=== PATIENT | male | born 1935 | race Caucasian/White ===

== ENCOUNTER 2018-08-29 17:17 | Emergency (ER) | payer MEDICARE, OTHER ==
[2018-08-29] MEDS ORDERED: Morphine 10 MG/ML VIAL ONE (17:47)
[2018-08-29] MEDS ORDERED: Ondansetron ODT 4 MG TAB ONE (18:48)
[2018-08-29] MEDS ORDERED: HYDROcodone/Acetaminophen 5/325 mg Tablet ONE (18:48)
--- NOTE | 2018-08-29 20:24 | RAD ---
AP AND OBLIQUE VIEWS LEFT RIBS: 08/29/18 HISTORY: Fall with left sided pain. AP and oblique views left ribs obtained. Images demonstrate fractures involving the left 6th, 7th, 8th and 9th ribs. No evidence of accompanyi ng pneumothorax seen. No evidence of hemothorax seen. IMPRESSION: Left 6th, 7th, 8th, and 9th ribs fractures. POS: [facility]
--- NOTE | 2018-08-29 20:26 | RAD ---
TWO VIEWS CHEST: 08/29/18 HISTORY: Fall with left sided pain. PA and lateral views of the chest is obtained. Again, left sided rib fractures seen. Please see accom panying left rib series dictation. The lungs are well aerated. No evidence of hemo or pneumothorax seen. IMPRESSION: Left 6th through 9th rib fractures. No other acute intrathoracic abnormality seen. POS: [facility]
== END 2018-08-29 20:30 | disposition home or self-care (01) ==
LOC: ERS 17:17
DX: S22.42XA Multiple fractures of ribs, left side, initial encounter for closed fracture (principal); I25.10 Atherosclerotic heart disease of native coronary artery without angina pectoris; E11.9 Type 2 diabetes mellitus without complications; E78.5 Hyperlipidemia, unspecified; I10 Essential (primary) hypertension; Z79.899 Other long term (current) drug therapy; Z79.84 Long term (current) use of oral hypoglycemic drugs; W17.89XA Other fall from one level to another, initial encounter
CPT/HCPCS: 71046; 96372; J2270; Q0162

== ENCOUNTER 2018-10-26 10:35 | Day surgery (SDC) | payer MEDICARE, OTHER ==
[2018-10-25 12:20] VITALS: BMI 23.8
[2018-10-26] MEDS ORDERED: PROPOFOL 200 MG/20 ML VIAL ONE (14:08)
--- NOTE | 2018-10-26 17:15 | EKG ---
Test Reason : PREOP Blood Pressure : / mmHG Vent. Rate : 053 BPM Atrial Rate : 053 BPM P-R Int : 254 ms QRS Dur : 080 ms QT Int : 454 ms P-R-T Axes : 049 -27 077 degrees QTc Int : 426 ms Sinus bradycardia with 1st degree A-V block Anteroseptal infarct (cited on or before 02-APR-2004) Abnormal ECG When compared with ECG of 03-FEB-2016 07:16, No significant change was found Confirmed by DR. Lars MIRANDA ([id number]) on 10/26/2018 5:14:49 PM Referred By: MARIANNE Confirmed By:DR. Lars MIRANDA
--- NOTE | 2018-10-27 07:28 | OP ---
DATE OF PROCEDURE: 10/26/2018 PREPROCEDURE DIAGNOSES: 1. Mild anemia, hemoglobin of 11 to 12 with history of iron deficiency. Most recently, iron was 11, ferritin was 100. No overt bleeding. 2. Recent rib fracture after trauma with loss of appetite and some weight loss. POSTPROCEDURE DIAGNOSES: 1. EGD with hiatal hernia. Small bowel biopsies were taken to rule out celiac disease as a cause of iron deficiency, which he states has existed since he was a child. 2. Colonoscopy notable for a 5 mm polyp in the descending colon. This was removed by snare polypectomy and submitted to Pathology. No bleeding sites identified. RECOMMENDATIONS: 1. Continue iron supplementation. 2. Continue home medicines. 3. Follow up in the office on 11/28/2018 at 3:35 for weight check. ANESTHESIA: TIVA. PROCEDURE IN DETAIL: The patient was informed of the risks, benefits, possible complications of endoscopy including perforation, reaction to medication and aspiration, and informed consent was obtained. The patient was brought to the endoscopy suite, where he was sedated in the gradual fashion. Once he was comfortable, a bite block was placed into his oroparhynx. The endoscope was advanced to the esophagus, stomach, and second and third portion of the duodenum and the scope was slowly removed. There was good visualization of the mucosa. The esophagus and stomach were normal except for a sliding-type hiatal hernia of 3 cm in size. The hiatus was at 40 cm. The GE junction was normal at 37 cm. The stomach had normal sensibility, and normal in forward and retroflexed views. The duodenal bulb and duodenal third portion were normal. Biopsies were taken from the duodenum to rule out celiac. The scope was removed. The patient was turned to the room and the rectal exam was performed. The prep was good. The endoscope was advanced through the anal canal through the colon to the cecum. The terminal ileum was entered and normal. The scope was then slowly removed from the colon with no evidence of masses or lesions. There was a 5 mm polyp in the descending colon, which was removed bycold snare polypectomy and submitted to Pathology. Retroflexed views were negative. The scope was removed. The patient tolerated the procedure well without any complications. CC: Job ID: [id number]
== END 2018-10-26 15:10 | disposition home or self-care (01) ==
LOC: SDC 10:35
PROVIDERS: ATTEND Internal Medicine Gastroenterology
PROC: 0DB88ZX Excision of Small Intestine, Via Natural or Artificial Opening Endoscopic, Diagnostic (ICD-10-PCS; principal; 2018-10-26)
PROC: 0DBM8ZX Excision of Descending Colon, Via Natural or Artificial Opening Endoscopic, Diagnostic (ICD-10-PCS; 2018-10-26)
DX: D50.9 Iron deficiency anemia, unspecified (principal); R63.4 Abnormal weight loss; D12.4 Benign neoplasm of descending colon; K21.9 Gastro-esophageal reflux disease without esophagitis; K44.9 Diaphragmatic hernia without obstruction or gangrene; G47.30 Sleep apnea, unspecified; I25.10 Atherosclerotic heart disease of native coronary artery without angina pectoris; E78.00 Pure hypercholesterolemia, unspecified; I11.0 Hypertensive heart disease with heart failure; I50.9 Heart failure, unspecified; E11.9 Type 2 diabetes mellitus without complications; Z88.5 Allergy status to narcotic agent; Z88.2 Allergy status to sulfonamides; Z79.82 Long term (current) use of aspirin; Z79.899 Other long term (current) drug therapy; Z79.84 Long term (current) use of oral hypoglycemic drugs
CPT/HCPCS: 36416; 88305; 93005; 93010; J2704

== ENCOUNTER 2019-02-22 08:07 | Outpatient (CLI) | payer MEDICARE, OTHER ==
--- NOTE | 2019-02-22 08:23 | RAD ---
Supine abdomen: INDICATIONS: Follow-up foreign body of alimentary tract Exam performed to assess camera capsule. Bowel gas pattern unremarkable. Foreign body consistent with the ingested camera overlies the right l ower quadrant, possibly within the cecum.
== END 2019-02-22 08:08 | disposition home or self-care (01) ==
LOC: BICRAD 08:07
PROVIDERS: ATTEND Internal Medicine Gastroenterology
DX: T18.9XXA Foreign body of alimentary tract, part unspecified, initial encounter (principal)
CPT/HCPCS: 74018

== ENCOUNTER 2019-03-01 11:01 | Outpatient (CLI) | payer MEDICARE, OTHER ==
--- NOTE | 2019-03-01 12:24 | CT ---
CT ABDOMEN AND PELVIS WITH ORAL AND IV CONTRAST: HISTORY: Foreign body of alimentary tract. Gastroparesis and anemia. The patient states he swallowed a camer a pill a few weeks ago and does not think he passed it yet. FINDINGS: The lung bases are clear. The liver, spleen, pancreas, adrenal glands, and kidneys appear normal. N o free air, free fluid, or lymphadenopathy is seen in the abdomen or pelvis. The small bowel loops a re not abnormally dilated. There is contrast and fecal material in the colon. Though a radiopaque c amera is not visualized in the bowel loops, the possibility of this being obscured by the presence of contrast cannot be completely excluded. There are vascular calcifications without evidence of aneurysmal dilatation of the abdominal aorta. There are degenerative changes in the spine. IMPRESSION: 1. No acute process. 2. Recommend a KUB a few days later (after excretion of the administered entry contrast) to look for the ingested camera pill). POS: [facility]
== END 2019-03-01 11:02 | disposition home or self-care (01) ==
LOC: BICCT 11:01
PROVIDERS: ATTEND Internal Medicine Gastroenterology
DX: K31.84 Gastroparesis (principal); T18.9XXA Foreign body of alimentary tract, part unspecified, initial encounter; D50.9 Iron deficiency anemia, unspecified
CPT/HCPCS: 74177; 82565

== ENCOUNTER 2020-02-28 13:49 | Outpatient (CLI) | payer MEDICARE, OTHER ==
--- NOTE | 2020-02-28 15:29 | MRI ---
MRI cervical spine noncontrast: DATE: 02/28/2020 HISTORY: 84-year-old male with cervicalgia FINDINGS: Cervical spinal cord is normal in signal. Vertebral body heights are maintained. No major subluxation or major bone marrow signal abnormality. Disc-osteophyte complexes protruding into the anterior aspect of spinal canal at all levels from C3-4 through C6-7, indenting the spinal cord throughout all those levels. They are mostly broad-based, but there are also focal central components of such at C4-5, C5-6, and C6-7. Multilevel bilateral facet DJD, mostly mild on the right, but moderate to sever e on the left at C2-3 and C3-4, moderate on the left at C3 4-5, and mild to moderate bilaterally at C7-T1. Small and moderate-sized uncinate process osteophytes encroach upon bilateral neural foramina at all levels from C3-4 through C7-T1. C1-2: No high-grade central stenosis. C2-3: Ligamentum flavum thickening. Moderate central spinal canal stenosis. Mild bilateral neural for aminal stenosis. C3-4: Severe central spinal canal stenosis. Moderate-severe right neural foraminal stenosis. Severe l eft neural foraminal stenosis. C4-5: Severe central spinal canal stenosis. Severe bilateral neural foraminal stenosis, right worse t palafox left. Ligamentum flavum thickening indents dorsal surface of spinal cord. C5-6: Severe central spinal canal stenosis. Severe right neural foraminal stenosis. Moderate to sever e left neural foraminal stenosis. C6-7: Severe central spinal canal stenosis. Moderate bilateral neural foraminal stenosis. Ligamentum flavum thickening abuts the dorsal surface of spinal cord. C7-T1: No central stenosis. Mild bilateral neural foraminal stenosis. IMPRESSION: 1. Cervical spondylosis consisting of multilevel moderate degenerative disc disease. 2. Severe central spinal canal stenosis with chronic impingement on spinal cord at all levels from C3 -4 through C6-7. 3. Multilevel high-grade bilateral neural foraminal stenosis, including severe.
--- NOTE | 2020-02-28 15:58 | MRI ---
MRI lumbar spine noncontrast HISTORY: Low back pain. FINDINGS: The conus medullaris has normal appearance. Vertebral body heights are maintained. There is desiccation of all of the intervertebral discs and scattered discogenic endplate changes within the bone marrow. Posterior disc bulge and circumferential degenerative changes are apparent on the sagittal images at the T11-12 level with mild central canal stenosis suspected. T12-L1: Disc space narrowing. Osteophytosis. Central canal and neural foramina are patent. L1-2, L2-3: Mild osteophytosis. Central canal and neural foramina are patent. L3-4: Mild disc bulge. Degenerative changes of the facets with joint fluid apparent. Central canal is patent. Moderate bilateral foraminal stenoses. L4-5: Disc space narrowing. Minimal degenerative retrolisthesis. Posterior disc bulge and circumferen tial degenerative changes. Small focal posterior central disc protrusion slightly effacing the thecal sac. Moderate to severe right and moderate left foraminal stenoses. L5-S1: Minimal disc bulge. Thecal sac is patent. Degenerative changes of the facets. Small amount syn ovial cyst associated with the right facet. Neural foramina are patent. IMPRESSION : Degenerative changes of the lower thoracic spine and lumbar spine, with central canal and foraminal s tenoses as detailed above, greatest on the right at the L4-5 level. Clinical correlation regarding the right L4 dermatome is required.
== END 2020-02-28 13:50 | disposition home or self-care (01) ==
LOC: BICMRI 13:49
PROVIDERS: ATTEND Neurological Surgery
DX: M54.2 Cervicalgia (principal); M54.5 Low back pain; M47.814 Spondylosis without myelopathy or radiculopathy, thoracic region; M47.816 Spondylosis without myelopathy or radiculopathy, lumbar region; M48.061 Spinal stenosis, lumbar region without neurogenic claudication; M47.812 Spondylosis without myelopathy or radiculopathy, cervical region; M48.02 Spinal stenosis, cervical region; M25.80 Other specified joint disorders, unspecified joint
CPT/HCPCS: 72141; 72148

== ENCOUNTER 2020-05-04 00:33 | Inpatient (IN) | payer MEDICARE, OTHER ==
[2020-05-04] MEDS ORDERED: Naloxone HCl 0.4 mg/ml Vial ONE (00:37)
[2020-05-04] MEDS ORDERED: Naloxone HCl 2 mg/2 ml Syringe ONE ×2 (00:38→03:01)
[2020-05-04 01:01] LABS: #Eosinphils 0.1 thou/uL (0.0-0.7); #Lymphocytes 2.4 thou/uL (1.20-3.40); #Monocytes 0.6 thou/uL (0.11-0.59); #Neutrophils 3.3 thou/uL (1.40-6.50); %Basophils 0.3 % (0.0-1.0); %Eosinophils 1.7 % (0.0-10.0); %Lymphocytes 38.2 % (21.0-51.0); %Monocytes 8.9 % (0.0-10.0); Hemoglobin 10.5 g/dL (14.0-18.0); Mean Corpuscular HGB CONC 31.9 g/dL (32.0-36.0); Mean Corpuscular Hemoglobin 29.1 pg (27.0-31.0); Mean Corpuscular Volume 91.2 fL (78.0-98.0); Mean Platelet Volume 7.6 fL (7.4-10.4); Platelet Count 144 thou/uL (130-400); Red Blood Cell (RBC) Count 3.62 mill/uL (4.70-6.10); White Blood Cell (WBC) Count 6.4 thou/uL (4.8-10.8)
[2020-05-04 01:19] LABS: Bilirubin Negative (Negative); Blood, Urine Negative (Negative); Clarity Clear (Clear); Glucose, Urine (Dipstick) Normal (Negative); Ketone, Urine Negative (Negative); Leukocyte Negative Leu/uL (Negative); Nitrite Negative (Negative); Protein, Urine (Dipstick) Negative (Neg-Trace); Specific Gravity, Urine 1.006 (1.002-1.036); Urobilinogen Normal mg/dL (Less than 2); pH, Urine 5.5 (5.0-9.0)
[2020-05-04 01:21] LABS: ALT (SGPT) 15 U/L (8-55); AST (SGOT) 19 U/L (5-34); Albumin 3.6 g/dL (3.4-4.8); Alkaline Phosphatase 72 U/L (40-110); Anion Gap 12 mmol/L (10-20); BUN (Urea Nitrogen) 11 mg/dL (8.4-25.7); Bilirubin, Total 0.4 mg/dL (0.2-1.2); Calc. Creatinine Clearance 0 mL/min (70-130); Calcium 8.5 mg/dL (7.8-10.44); Carbon Dioxide 20 mmol/L (23-31); Chloride 104 mmol/L (98-107); Estimated GFR-MDRD 89; Globulin 2.6 g/dL (2.4-3.5); Glucose 102 mg/dL (83-110); Potassium 3.8 mmol/L (3.5-5.1); Protein, Total 6.2 g/dL (5.8-8.1); Sodium 132 mmol/L (136-145)
[2020-05-04 01:40] LABS: Amphetamine Not Detected (NotDetected); Barbiturates Screen Not Detected (NotDetected); Benzodiazepine Screen Not Detected (NotDetected); Cocaine Metabolite Screen Not Detected (NotDetected); Medtox Control Line Valid? VALID (VALID); Medtox Reader # READER 4; Methadone Not Detected (NotDetected); Methamphetamine Not Detected (NotDetected); Opiate Screen Not Detected (NotDetected); Oxycodone Screen Not Detected (NotDetected); Phencyclidine (PCP) Not Detected (NotDetected); THC/Cannabinoid Screen Not Detected (NotDetected); Tricyclic Screen Not Detected (NotDetected)
[2020-05-04] MEDS ORDERED: Naloxone HCl 2 MG in Sodium Chloride 0.9% 500 ML IV SCH (03:00)
[2020-05-04] MEDS ORDERED: NALOXONE HCL IV SCH (03:30)
[2020-05-04] MEDS ORDERED: SODIUM CHLORIDE 0.9% IV SCH (03:30)
[2020-05-04] MEDS ORDERED: Dextrose 50% Abboject 50 ML SYRINGE SLOW IVP PRN (05:14)
[2020-05-04] MEDS ORDERED: Acetaminophen 500 MG TAB PO PRN (05:14)
[2020-05-04] MEDS ORDERED: HumaLOG 300 UNITS/3 ML VIAL SC PRN ×2 (05:14)
[2020-05-04] MEDS ORDERED: Dextrose 5% in Water 1,000 ML IV PRN (05:14)
[2020-05-04] MEDS ORDERED: Ondansetron ODT 4 MG TAB PO PRN (05:14)
[2020-05-04] MEDS ORDERED: Ondansetron PF 4 MG/2 ML Vial IVP PRN (05:14)
[2020-05-04] MEDS ORDERED: Dextrose 5 % And 0.9 % NaCl 1,000 ML IV SCH (05:15)
[2020-05-04 05:54] VITALS: BMI 21.6
--- NOTE | 2020-05-04 06:01 | HP ---
PRIMARY CARE PROVIDER: Sree De Leon MD CHIEF COMPLAINT: Altered mental status. HISTORY OF PRESENT ILLNESS: This is an 84-year-old male, who presents to [facility] Emergency Department in transfer from his home after family noticed the patient minimally responsive starting approximately 2300 hours on 05/03/2020. The family became concerned of his behavior and suspected he may have accidentally taken his daughter's medication including Seroquel, gabapentin, and clonazepam, which were left on the counter in the kitchen near his medications. No specific history related to unilateral weakness, but the patient was noted lethargic and minimally responsive to voice and tactile stimulation according to ER reports. The patient is unable to provide any coherent history due to altered mental status and lethargy. In the emergency room, the patient underwent CT imaging of the brain showing no acute process. Urine drug screen remarkably negative. At which point, the patient received IV fluids in addition to multiple doses of Narcan 1 mg IV push x3 and initiated on Narcan infusion with some improvement and responsive reflexes during examination. Initial concern for potential narcotic overdose; however, urine drug screen showed no evidence of narcotics. PAST MEDICAL HISTORY: 1. Diabetes mellitus, type 2. 2. Coronary artery disease, status post cardiac stent placement. 3. Hyperlipidemia. 4. Hypertension. PAST SURGICAL HISTORY: 1. Status post appendectomy. 2. Status post cholecystectomy. 3. Status post cardiac stent placement x3. CURRENT MEDICATIONS: 1. Isosorbide mononitrate 30 mg p.o. b.i.d. 2. Metformin 1000 mg p.o. b.i.d. 3. Lisinopril 20 mg p.o. daily. 4. Carvedilol 3.125 mg p.o. b.i.d. 5. Atorvastatin 40 mg p.o. at bedtime. 6. Aspirin 81 mg p.o. daily. 7. Ferrous sulfate 324 mg p.o. b.i.d.. 8. Glyburide 1.25 mg p.o. daily. 9. Donepezil 5 mg p.o. at bedtime. 10. Protonix 40 mg p.o. q.a.m. 11. Amlodipine 5 mg p.o. daily. 12. Nitroglycerin 0.4 mg sublingual q.5 minutes p.r.n. chest pain. ALLERGIES: CODEINE SULFATE AND SULFA. FAMILY HISTORY: No inheritable diseases per review of electronic medical record. SOCIAL HISTORY: Resides in the [facility] area, living with family and his spouse. No alcohol, tobacco, or illicit drug use. REVIEW OF SYSTEMS: Unobtainable due to patient's altered mental status and encephalopathy. PHYSICAL EXAMINATION: VITAL SIGNS: Blood pressure 96/49, pulse 51, respiratory rate 16, temperature 95.2 degrees rectally, O2 saturation 99% on room air. GENERAL APPEARANCE: This is an 84-year-old male, lethargic, somnolent, minimally responsive to direct tactile stimulation and noxious stimuli. HEENT: Pupils are minimally reactive to light and accommodation. Extraocular muscles, random movements noted. No scleral icterus. Nares patent. OP is clear. Oral mucosa is dry. Teeth in fair repair. NECK: Supple. No cervical adenopathy. No thyromegaly. No carotid bruits. No JVD appreciated. No meningeal signs noted. CHEST: Lungs are clear to auscultation bilaterally. CARDIOVASCULAR: S1 and S2 without noted murmur, rub, or gallop. Tachycardia noted. ABDOMEN: Rounded, soft, nontender, and nondistended. Bowel sounds are positive in all 4 quadrants. There is no hepatosplenomegaly. No abdominal bruits. No rebound or guarding appreciated. EXTREMITIES: Warm and dry with fair turgor. No clubbing, cyanosis, or asymmetric edema appreciated. Pulses are palpable distally at the dorsalis pedis, posterior tibial, and popliteal arteries bilaterally. Capillary refill less than 2 seconds. NEUROLOGIC: Somnolent and lethargic, minimally responsive to noxious stimuli and name. PERTINENT LABORATORY AND X-RAY FINDINGS: Sodium 132, potassium 3.8, chloride 104, CO2 of 20, BUN 11, creatinine 0.83, glucose 102, calcium 8.5. Lactic acid level 1.7. LFTs within normal limits. Troponin I less than 0.010. CBC showed a white blood cell count of 6.4, hemoglobin 10.5, hematocrit 33, platelet count 144 with normal differential. Urinalysis negative. Urine drug screen dated 05/04/2020, negative. CT of the brain without contrast dated 05/04/2020, showed no acute intracranial process. Chronic ischemic white matter changes noted. Portable chest x-ray dated 05/04/2020, by my interpretation showed no acute cardiopulmonary process or infiltrates. EKG dated 05/04/2020, by my interpretation shows sinus bradycardia with heart rates in the 40s to 50s. Attenuated R-waves noted in the precordial leads. T-wave inversion noted in the precordial leads. Left axis deviation. ASSESSMENT AND PLAN: 1. Toxic metabolic encephalopathy. Suspect secondary to unintentional overdose with psychotropic medications. We will continue drug holiday and provide supportive management. We will continue Narcan infusion. Serial neurologic exams. Consider Neurology consultation if no improvement in the next 24 hours. 2. Hyponatremia, mild. We will continue normal saline with D5 at 100 mL/h. Serial sodium monitoring. 3. Hypotension. We will continue IV fluids as outlined previously. Hold all antihypertensive medications. Serial blood pressure monitoring. 4. Diabetes mellitus, type 2. Insulin sliding scale for reflexive coverage. Serial Accu-Cheks q.6 hours. ADA diet when tolerating p.o. intake. 5. Prophylaxis. Sequential compression devices while in bed. Pepcid 20 mg IV q.12 hours. PT evaluation for functional assessment. 6. Code status, full. Surrogate medical decision maker is the patient's spouse. Job ID: [id number]
[2020-05-04 06:46] LABS: #Lymphocytes 1.3 thou/uL (1.20-3.40); #Monocytes 0.4 thou/uL (0.11-0.59); %Eosinophils 0.8 % (0.0-10.0); %Monocytes 6.4 % (0.0-10.0); %Neutrophils 69.8 % (42.0-75.0); Hemoglobin 9.1 g/dL (14.0-18.0); Mean Corpuscular HGB CONC 32.6 g/dL (32.0-36.0); Mean Corpuscular Volume 92.1 fL (78.0-98.0); Mean Platelet Volume 7.6 fL (7.4-10.4); Platelet Count 123 thou/uL (130-400); RBC Distribution Width 11.9 % (11.5-14.5); Red Blood Cell (RBC) Count 3.03 mill/uL (4.70-6.10); White Blood Cell (WBC) Count 5.8 thou/uL (4.8-10.8)
[2020-05-04 06:57] LABS: ALT (SGPT) 11 U/L (8-55); AST (SGOT) 12 U/L (5-34); Alkaline Phosphatase 54 U/L (40-110); Anion Gap 9 mmol/L (10-20); BUN (Urea Nitrogen) 8 mg/dL (8.4-25.7); Bilirubin, Total 0.3 mg/dL (0.2-1.2); Calc. Creatinine Clearance 73 mL/min (70-130); Calcium 6.8 mg/dL (7.8-10.44); Carbon Dioxide 19 mmol/L (23-31); Chloride 113 mmol/L (98-107); Estimated GFR-MDRD 90; Globulin 1.8 g/dL (2.4-3.5); Glucose 664 mg/dL (83-110); Potassium 3.6 mmol/L (3.5-5.1); Protein, Total 4.8 g/dL (5.8-8.1); Sodium 137 mmol/L (136-145)
--- NOTE | 2020-05-04 07:21 | CT ---
PRELIMINARY REPORT/[facility]/AFTER HOURS PROCEDURE CT HEAD WITHOUT CONTRAST: 05/04/2020 1:11 a.m. INDICATIONS: Diminished/decreased responsiveness. TECHNIQUE: Axial CT imaging was performed through the head without intravenous administration of contrast. Exam was performed using one or more of the following dose reduction techniques: automated exposure cont rol, adjustment of the mA and/or kV according to patient size, or use of iterative reconstruction tera hnique. COMPARISON: CT head from 01/08/2007. FINDINGS: There is no intracranial hemorrhage, mass or mass effect. The brain exhibits mild atrophy. Perivent ricular white-matter hypoattenuation is seen; although nonspecific this is most commonly related to t he sequela of chronic small-vessel ischemia. There is no CT evidence of an acute infarct. 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 Mastoid air cells ar e clear. Imaging begins at the maxillary alveolar ridge level. Orbital structures are unremarkable. Mild mucosal thickening in the right maxillary sinus is noted with the sinus having a thickened, sc lerotic wall. Remaining sinuses are clear. IMPRESSION: 1. CT imaging shows no acute intracranial abnormality. 2. 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 3. Chronic right maxillary sinus disease. ELECTRONICALLY SIGNED BY: Jeff Smith DO May 04, 2020 1:28:25 AM CDT This report is intended for review by the ordering physician only, in accordance of law. If you recei ve this report in error, please call [facility] at [phone]. FINAL REPORT EMERGENT AFTER HOURS CT BRAIN WITHOUT CONTRAST: FINDINGS/IMPRESSION: I agree with the findings and impression given in the preliminary report per the [facility] marcelino arthur. Small vessel ischemic disease without acute intracranial abnormality. CODE QA POS: [facility]
[2020-05-04 07:57] LABS: Glucose 734 mg/dL (83-110)
[2020-05-04 08:32] LABS: Glucose 167 mg/dL (83-110)
--- NOTE | 2020-05-04 08:35 | RAD ---
SINGLE VIEW CHEST: HISTORY: Found down by family with altered mental status. COMPARISON: 02/02/2016 FINDINGS: A single view of the chest shows a normal sized cardiomediastinal silhouette with atherosclerotic inez cifications in the aorta. There is no evidence of consolidation, mass or pleural effusion. Degenerati ve changes are seen in the spine. IMPRESSION: No evidence of acute cardiopulmonary disease. POS: [facility]
--- NOTE | 2020-05-04 08:42 | PDOC.HOSPP ---
- Subjective Encounter Date: 05/04/20 Encounter Time: 08:37 Subjective: resonsive to deep pain - Objective Vital Signs & Weight: Vital Signs (12 hours) Temp Pulse Ox 05/04/20 07:24 98 05/04/20 06:00 97.6 F 05/04/20 05:00 98.6 F 92 L Weight Weight 164 lb 0.383 oz Most Recent Monitor Data Heart Rate from ECG 68 NIBP 108/58 NIBP BP-Mean 74 Respiration from ECG 20 SpO2 99 I&O: 05/03/20 05/04/20 05/05/20 06:59 06:59 06:59 Intake Total 216 Output Total 0 Balance 216 0 Result Diagrams: 05/04/20 06:09 05/04/20 08:11 Hospitalist ROS - Medication Medications: Active Medications Generic Name Dose Route Start Last Admin Trade Name Freq PRN Reason Stop Dose Admin Naloxone HCl 4 mg/ Sodium 254 mls @ 254 mls/hr 05/04/20 03:30 05/04/20 05:41 Chloride IV 05/04/20 14:57 254 mls INF ALISON Administration Protocol 4 MG/HR Dextrose/Sodium Chloride 1,000 mls @ 100 mls/hr 05/04/20 05:15 05/04/20 05:41 D5 0.9% Ns IV 05/04/20 14:57 1,000 mls .Q10H ALISON Administration - Exam Neck: supple Heart: RRR, no murmur Respiratory: CTAB, no wheezes Gastrointestinal: soft, non-tender, normal bowel sounds Extremities: no edema Neurological: cranial nerve grossly intact, no focal deficits Neurological - other findings: both toes upgoing Hosp A/P (1) Acute encephalopathy Code(s): G93.40 - ENCEPHALOPATHY, UNSPECIFIED Status: Acute (2) CAD (coronary artery disease) Code(s): I25.10 - ATHSCL HEART DISEASE OF [place] CORONARY ARTERY W/O ANG PCTRS Status: Chronic Qualifiers: Coronary Disease-Associated Artery/Lesion type: [place] artery [place] vs. transplanted heart: [place] heart Associated angina: without angina Qualified Code(s): I25.10 - Atherosclerotic heart disease of [place] coronary artery without angina pectoris (3) DM2 (diabetes mellitus, type 2) Status: Chronic Qualifiers: Diabetes mellitus extermination inspector insulin use: without jail use Diabetes mellitus complication status: without complication Qualified Code(s): E11.9 - Type 2 diabetes mellitus without complications (4) HLD (hyperlipidemia) Code(s): E78.5 - HYPERLIPIDEMIA, UNSPECIFIED Status: Chronic (5) HTN (hypertension) Code(s): I10 - ESSENTIAL (PRIMARY) HYPERTENSION Status: Chronic Qualifiers: Hypertension type: essential hypertension Qualified Code(s): I10 - Essential (primary) hypertension - Plan eatiology of encephalopathy unclear- thought to be acc OD selvin exam non-focal cont accu/ss rpt exam in a few hrs
[2020-05-04] MEDS: Famotidine/PF 20 mg/2ml Vial SLOW IVP SCH ×2 (10:26→20:31)
[2020-05-05 04:43] LABS: #Basophils 0.1 thou/uL (0.0-0.2); #Monocytes 0.6 thou/uL (0.11-0.59); #Neutrophils 7.5 thou/uL (1.40-6.50); %Basophils 1.4 % (0.0-1.0); %Eosinophils 0.2 % (0.0-10.0); %Lymphocytes 10.9 % (21.0-51.0); %Monocytes 6.4 % (0.0-10.0); %Neutrophils 81.1 % (42.0-75.0); Hemoglobin 12.6 g/dL (14.0-18.0); Mean Corpuscular HGB CONC 33.3 g/dL (32.0-36.0); Mean Corpuscular Hemoglobin 29.4 pg (27.0-31.0); Mean Corpuscular Volume 88.5 fL (78.0-98.0); Mean Platelet Volume 7.7 fL (7.4-10.4); Platelet Count 149 thou/uL (130-400); RBC Distribution Width 12.1 % (11.5-14.5); Red Blood Cell (RBC) Count 4.27 mill/uL (4.70-6.10); White Blood Cell (WBC) Count 9.2 thou/uL (4.8-10.8)
[2020-05-05 05:47] LABS: ALT (SGPT) 13 U/L (8-55); AST (SGOT) 15 U/L (5-34); Albumin 3.6 g/dL (3.4-4.8); Alkaline Phosphatase 61 U/L (40-110); Anion Gap 13 mmol/L (10-20); BUN (Urea Nitrogen) 8 mg/dL (8.4-25.7); Bilirubin, Total 0.8 mg/dL (0.2-1.2); Calc. Creatinine Clearance 76 mL/min (70-130); Calcium 8.4 mg/dL (7.8-10.44); Carbon Dioxide 23 mmol/L (23-31); Chloride 99 mmol/L (98-107); Estimated GFR-MDRD Greater than 90; Globulin 2.6 g/dL (2.4-3.5); Glucose 156 mg/dL (83-110); Potassium 3.9 mmol/L (3.5-5.1); Protein, Total 6.2 g/dL (5.8-8.1); Sodium 131 mmol/L (136-145)
[2020-05-05] MEDS: Famotidine/PF 20 mg/2ml Vial SLOW IVP SCH ×2 (08:21→21:36)
--- NOTE | 2020-05-05 11:03 | PDOC.HOSPP ---
- Subjective Encounter Date: 05/05/20 Encounter Time: 10:59 Subjective: alert, oriented to person - Objective Vital Signs & Weight: Vital Signs (12 hours) Temp Pulse Ox 05/05/20 07:54 98 05/05/20 07:00 98.4 F 05/05/20 03:00 98.4 F 05/04/20 23:00 99.3 F Weight Weight 164 lb 0.383 oz Most Recent Monitor Data Heart Rate from ECG 66 NIBP 126/55 NIBP BP-Mean 78 Respiration from ECG 23 SpO2 98 I&O: 05/04/20 05/05/20 05/06/20 06:59 06:59 06:59 Intake Total 216 1058 20 Output Total 2652 500 Balance 093 -6192 -876 Result Diagrams: 05/05/20 03:10 05/05/20 03:10 Hospitalist ROS - Medication Medications: Active Medications Generic Name Dose Route Start Last Admin Trade Name Freq PRN Reason Stop Dose Admin Famotidine 20 mg 05/04/20 09:00 05/05/20 08:21 Pepcid SLOW IVP 20 mg Q12HR ALISON Administration Insulin Human Lispro 0 units 05/04/20 05:14 05/04/20 12:46 Humalog SC 3 unit .MILD SLIDING SCALE PRN Administration Mild Correctional Scale - Exam Neck: no JVD Heart: RRR, no murmur Respiratory: CTAB Gastrointestinal: soft, normal bowel sounds Extremities: no edema Neurological: cranial nerve grossly intact, no focal deficits Hosp A/P (1) Acute encephalopathy Code(s): G93.40 - ENCEPHALOPATHY, UNSPECIFIED Status: Acute (2) CAD (coronary artery disease) Code(s): I25.10 - ATHSCL HEART DISEASE OF [place] CORONARY ARTERY W/O ANG PCTRS Status: Chronic Qualifiers: Coronary Disease-Associated Artery/Lesion type: [place] artery [place] vs. transplanted heart: [place] heart Associated angina: without angina Qualified Code(s): I25.10 - Atherosclerotic heart disease of [place] coronary artery without angina pectoris (3) DM2 (diabetes mellitus, type 2) Status: Chronic Qualifiers: Diabetes mellitus fdc insulin use: without petroleum terminal plant operator use Diabetes mellitus complication status: without complication Qualified Code(s): E11.9 - Type 2 diabetes mellitus without complications (4) HLD (hyperlipidemia) Code(s): E78.5 - HYPERLIPIDEMIA, UNSPECIFIED Status: Chronic (5) HTN (hypertension) Code(s): I10 - ESSENTIAL (PRIMARY) HYPERTENSION Status: Chronic Qualifiers: Hypertension type: essential hypertension Qualified Code(s): I10 - Essential (primary) hypertension - Plan spoke with , clear evidense for progressive dementia-poor recall, frequently gets lost apparently took daughters 3 BIPOLAr meds prior to acute encephalopaythy back on home meds discharge likely 24-48 hrs
[2020-05-05] MEDS: metFORMIN 500 MG TAB PO SCH (16:40)
[2020-05-05] MEDS: Ferrous Sulfate 325 MG TAB PO SCH (16:41)
[2020-05-05] MEDS: glyBURIDE 2.5 MG TAB PO SCH (17:35)
[2020-05-05] MEDS: Donepezil HCl 5 MG TAB PO SCH (21:36)
[2020-05-05] MEDS: Atorvastatin Calcium 40 MG TAB PO SCH (21:36)
[2020-05-05] MEDS: Amlodipine 5 MG TAB PO SCH (21:36)
[2020-05-05] MEDS: Carvedilol 3.125 MG TAB PO SCH (21:36)
[2020-05-05] MEDS: Aspirin 81 mg Enteric Coated Tablet PO SCH (21:36)
[2020-05-06] MEDS: Cepastat Lozenges 1 LOZ PO PRN ×3 (00:16→22:00)
[2020-05-06] MEDS: glyBURIDE 2.5 MG TAB PO SCH ×2 (10:03→17:23)
[2020-05-06] MEDS: Ferrous Sulfate 325 MG TAB PO SCH ×2 (10:04→17:24)
[2020-05-06] MEDS: Carvedilol 3.125 MG TAB PO SCH ×2 (10:04→21:40)
[2020-05-06] MEDS: Lisinopril 20 MG TAB PO SCH (10:05)
[2020-05-06] MEDS: metFORMIN 500 MG TAB PO SCH ×2 (10:07→17:23)
[2020-05-06] MEDS: Famotidine/PF 20 mg/2ml Vial SLOW IVP SCH ×2 (10:08→21:40)
--- NOTE | 2020-05-06 11:02 | PDOC.HOSPP ---
- Subjective Encounter Date: 05/06/20 Encounter Time: 10:09 Subjective: alert, oriented x 3 - Objective Vital Signs & Weight: Vital Signs (12 hours) Temp Pulse Resp BP BP Pulse Ox 05/06/20 10:05 121/57 L 05/06/20 08:00 98.4 F 71 18 108/56 L 94 L 05/06/20 04:00 98.4 F 61 18 124/58 L 94 L 05/06/20 00:00 98.8 F 65 18 106/63 96 Weight Admit Weight 164 lb Weight 164 lb 0.383 oz Most Recent Monitor Data Heart Rate from ECG 66 NIBP 126/55 NIBP BP-Mean 78 Respiration from ECG 23 SpO2 98 I&O: 05/05/20 05/06/20 05/07/20 06:59 06:59 06:59 Intake Total 1058 1070 Output Total 2652 910 Balance -1594 160 Result Diagrams: 05/05/20 03:10 05/05/20 03:10 Additional Labs: Accuchecks 05/06/20 05/05/20 05/05/20 08:16 12:08 05:28 POC Glucose 114 H 131 H 138 H 05/04/20 05/04/20 05/04/20 23:52 17:59 12:43 POC Glucose 158 H 151 H 212 H 05/04/20 05/04/20 08:03 06:16 POC Glucose 171 H 153 H Hospitalist ROS - Medication Medications: Active Medications Generic Name Dose Route Start Last Admin Trade Name Deja PRN Reason Stop Dose Admin Amlodipine Besylate 5 mg 05/05/20 21:00 05/05/20 21:36 Norvasc PO 5 mg HS ALISON Administration Aspirin 81 mg 05/05/20 21:00 05/05/20 21:36 Ecotrin PO 81 mg HS ALISON Administration Atorvastatin Calcium 40 mg 05/05/20 21:00 05/05/20 21:36 Lipitor PO 40 mg HS ALISON Administration Carvedilol 3.125 mg 05/05/20 21:00 05/06/20 10:04 Coreg PO 3.125 mg BID ALISON Administration Donepezil HCl 5 mg 05/05/20 21:00 05/05/20 21:36 Aricept PO 5 mg HS ALISON Administration Famotidine 20 mg 05/04/20 09:00 05/06/20 10:08 Pepcid SLOW IVP 20 mg Q12HR ALISON Administration Ferrous Sulfate 325 mg 05/05/20 17:00 05/06/20 10:04 Feosol PO 325 mg BID-WM ALISON Administration Glyburide 1.25 mg 05/05/20 16:30 05/06/20 10:03 Micronase PO 1.25 mg BID-AC ALISON Administration Insulin Human Lispro 0 units 05/04/20 05:14 05/04/20 12:46 Humalog SC 3 unit .MILD SLIDING SCALE PRN Administration Mild Correctional Scale Isosorbide Mononitrate 30 mg 05/05/20 21:00 05/06/20 10:05 Imdur Er PO 30 mg BID ALISON Administration Lisinopril 20 mg 05/06/20 09:00 05/06/20 10:05 Zestril PO 20 mg DAILY ALISON Administration Metformin HCl 1,000 mg 05/05/20 17:00 05/06/20 10:07 Glucophage PO 1,000 mg BID-WM ALISON Administration Pantoprazole Sodium 40 mg 05/06/20 09:00 05/06/20 10:06 Protonix PO 40 mg DAILY ALISON Administration Throat Lozenges 1 ascencion 05/05/20 22:49 05/06/20 00:16 Cepastat Lozenges PO 1 ascencion Q2H PRN Administration Sore Throat - Exam General Appearance: awake alert Neck: no JVD Heart: RRR, no murmur Respiratory: CTAB Gastrointestinal: soft, normal bowel sounds Extremities: no edema Neurological: no focal deficits Hosp A/P (1) Acute encephalopathy Code(s): G93.40 - ENCEPHALOPATHY, UNSPECIFIED Status: Acute (2) CAD (coronary artery disease) Code(s): I25.10 - ATHSCL HEART DISEASE OF [place] CORONARY ARTERY W/O ANG PCTRS Status: Resolved Qualifiers: Coronary Disease-Associated Artery/Lesion type: [place] artery [place] vs. transplanted heart: [place] heart Associated angina: without angina Qualified Code(s): I25.10 - Atherosclerotic heart disease of [place] coronary artery without angina pectoris (3) DM2 (diabetes mellitus, type 2) Status: Chronic Qualifiers: Diabetes mellitus retirement insulin use: without retirement use Diabetes mellitus complication status: without complication Qualified Code(s): E11.9 - Type 2 diabetes mellitus without complications (4) HLD (hyperlipidemia) Code(s): E78.5 - HYPERLIPIDEMIA, UNSPECIFIED Status: Chronic (5) HTN (hypertension) Code(s): I10 - ESSENTIAL (PRIMARY) HYPERTENSION Status: Chronic Qualifiers: Hypertension type: essential hypertension Qualified Code(s): I10 - Essential (primary) hypertension - Plan encephalopathy resolved on home meds PT to evaluate
[2020-05-06] MEDS: Aspirin 81 mg Enteric Coated Tablet PO SCH (21:40)
[2020-05-06] MEDS: Donepezil HCl 5 MG TAB PO SCH (21:40)
[2020-05-06] MEDS: Atorvastatin Calcium 40 MG TAB PO SCH (21:40)
[2020-05-06] MEDS: Amlodipine 5 MG TAB PO SCH (21:40)
[2020-05-07] MEDS: Cepastat Lozenges 1 LOZ PO PRN (03:10)
[2020-05-07] MEDS ORDERED: glyBURIDE 2.5 MG TAB PO SCH (07:30)
[2020-05-07] MEDS: metFORMIN 500 MG TAB PO SCH (08:28)
[2020-05-07] MEDS: Lisinopril 20 MG TAB PO SCH (08:28)
[2020-05-07] MEDS: Ferrous Sulfate 325 MG TAB PO SCH (08:29)
[2020-05-07] MEDS: Carvedilol 3.125 MG TAB PO SCH (08:30)
[2020-05-07] MEDS: Famotidine/PF 20 mg/2ml Vial SLOW IVP SCH (08:31)
[2020-05-07 08:46] VITALS: BP 123/91; TEMP 98
--- NOTE | 2020-05-07 13:44 | PQF ---
CLINICAL DOCUMENTATION CLARIFICATION FORM: Dear Dr. Laxmi GOODWIN Date / Time: 05/07/2020 [id number] Please exercise your independent, professional judgment in responding to the clarification form. Clinical indicators are provided on the bottom of this form for your review. Please check appropriate box(es): [ ] Sepsis due to: [ ] UTI Due to: [ ] Indwelling [place] Catheter [ ] Sepsis Not Due to: [ ] UTI Not Due to : [ ] Indwelling [place] Catheter [ ] Severe sepsis with associated acute organ dysfunction: [ ] Acute Kidney injury w/o ATN [ ] Aspiration Pneumonia [ ] Encephalopathy (metabolic) [ ] Additional/Other: please specify: [ ] Septic Shock [ ] Localized infection without sepsis [ ] Other diagnosis [ x ] Unable to determine In addition, please specify: Present on Admission (POA): [ x ] Yes [ ] No [ ] Unable to determine For continuity of documentation, please document condition throughout progress notes and discharge summary. Thank You. To be completed by CDI/Coding staff for physician review: CLINICAL INDICATORS - SIGNS / SYMPTOMS / LABS / RESULTS AND LOCATION IN MR 05/06 WBC 20.2 BANDS 26 05/07 WBC 13.2 05/06 ED REPORT: TEMP 102.2, PT HAS LIZARRAGA SUSTAINABILITY PROJECT COORDINATOR, FINAL DX SEPSIS, AMS, HEALTHCARE ASSOCIATED PNEUMONIA, UTI 05/06 H&P ( SINJA) A/P: 1). RIGHT LOWER LOBE PNEUMONIA, ASPIRATION PNEUONIA. 2). COMPLICATED UTI -LIZARRAGA PLACED 3 WEEKS AGO, UA CONTAMINATED, REPLACED ON PRESENTATION 05/06 PN (OBI) ASSESSMENT: 1). MASON : DUE TO HEMODYNAMIC FACTORS RELATED TO SEPSIS FROM EITHER UTI AND /OR PNEUMONIA. 05/06 CONSULT (PAUL) ASSESSMENT: 6). ABNORMAL URINALYSIS WITH INDWELLING LIZARRAGA CATHETERIZATION 05/07 PN (BUDDY) COMPLICATED UTI- REPEAT UA SHOWS BACTERIURIA AND PYURIA RISK FACTORS / RESULTS AND LOCATION IN MR DX : RIGHT LOWER LOBE PNEUMONIA, COMPLICATED UTI, CHRONIC INDWELLING LIZARRAGA CATHETER ( PN/ SINJA) 05/06 TREATMENTS / RESULTS AND LOCATION IN MR ID CONSULT ( PAUL/05/06) MEROPENEM IV ( 05/06 PRESENT) THANK YOU! FIGUEROA SHULTZ Signature: FIGUEROA MAZARIEGOS RN Phone #: [phone] Date: [id number] This is a permanent part of the Medical Record [facility]
--- NOTE | 2020-05-07 14:26 | DIS ---
DATE OF ADMISSION: 05/04/2020 DATE OF DISCHARGE: 05/07/2020 DISPOSITION: Discharged home. FINAL DIAGNOSES: Toxic encephalopathy, hyponatremia, hypotension, diabetes mellitus type 2, accidental overdose on psychotropic medicine, coronary artery disease, hypertension, dyslipidemia. DISCHARGE MEDICATIONS: Same as his home medicines. 1. Isosorbide mononitrate 30 mg twice a day. 2. Metformin 1000 mg twice a day. 3. Lisinopril 20 mg a day. 4. Coreg 3.125 mg twice a day. 5. Lipitor 40 mg a day. 6. Aspirin 81 mg a day. 7. Glyburide 1.25 mg a day. 8. Donepezil 5 mg a day. 9. Protonix 40 mg a day. 10. Amlodipine 5 mg a day. ALLERGIES: CODEINE, SULFA. PENDING AT TIME OF DISCHARGE: Nothing. CODE STATUS: Full. HOSPITAL COURSE: The patient admitted to [facility] with a diagnosis of altered mental status. History was such that it was suspected that he had taken his daughter's psychotropic medicines for bipolar disorder. He was placed in intensive care unit on IV saline. He was put on a Narcan drip. Admitting drug screen was negative. CBC; white count 6.4, hemoglobin 10.5. Chemistries; sodium 132, potassium 3.8, BUN 11, creatinine 0.83. Liver function tests normal. Lactic acid normal. UA was normal. Blood cultures were drawn, which were normal. The patient slowly woke up during his hospital stay who was eventually transitioned to medical and long conversation with his . 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 He had attributed to he had change in blood sugar and the family who has had no ability to disagree with him. At the time of discharge, his vital signs are stable. He is alert, oriented, knows where he is. He was evaluated with physical therapy and walked with a walker. Laboratory studies are unremarkable. He is being discharged home to the care of his family with home health. His PCP is Dr. Sree De Leon. He has been asked to see him in 3 to 7 days. Job ID: [id number]
== END 2020-05-07 15:26 | disposition home or self-care (01) | DRG 917 ==
LOC: ERS 00:33 → CCU 03:04 → ONC 05-05 10:42
PROVIDERS: ADMIT Family Medicine; ATTEND Family Medicine
DX: T43.91XA Poisoning by unspecified psychotropic drug, accidental (unintentional), initial encounter (principal); G92 Toxic encephalopathy; E87.1 Hypo-osmolality and hyponatremia; I95.9 Hypotension, unspecified; E11.9 Type 2 diabetes mellitus without complications; F31.9 Bipolar disorder, unspecified; E78.00 Pure hypercholesterolemia, unspecified; I25.10 Atherosclerotic heart disease of native coronary artery without angina pectoris; I10 Essential (primary) hypertension; E78.5 Hyperlipidemia, unspecified; Z88.5 Allergy status to narcotic agent; Z88.2 Allergy status to sulfonamides; Z95.5 Presence of coronary angioplasty implant and graft; I25.2 Old myocardial infarction; Z90.49 Acquired absence of other specified parts of digestive tract; Z88.8 Allergy status to other drugs, medicaments and biological substances; Z79.4 Long term (current) use of insulin
CPT/HCPCS: 36415; 36416; 70450; 71045; 80053; 80306; 81003; 83605; 84484; 85025; 87040; 93005; J2310; J7030; J7050; S0028

== ENCOUNTER 2023-12-24 14:33 | Emergency (ER) | payer OTHER ==
[2023-12-24] MEDS ORDERED: Acetaminophen 325 MG TAB ONE (16:33)
== END 2023-12-24 18:45 | disposition home or self-care (01) ==
LOC: ERS 14:33
DX: S70.02XA Contusion of left hip, initial encounter (principal); S30.0XXA Contusion of lower back and pelvis, initial encounter; I25.10 Atherosclerotic heart disease of native coronary artery without angina pectoris; E11.9 Type 2 diabetes mellitus without complications; I10 Essential (primary) hypertension; I25.2 Old myocardial infarction; W01.0XXA Fall on same level from slipping, tripping and stumbling without subsequent striking against object, initial encounter

== ENCOUNTER 2024-09-15 13:14 | Inpatient (IN) | payer MEDICARE, OTHER ==
[2024-09-15 14:07] LABS: #Basophils Less than 0.03 10x3/uL (0.0-0.2); %Basophils 0.1 % (0.0-1.0); %Eosinophils 0.5 % (0.0-10.0); %Lymphocytes 5.6 % (21.0-51.0); %Monocytes 6.4 % (0.0-10.0); %Neutrophils 86.9 % (42.0-75.0); Analyzer IN Cardio ER; Base Excess -0.9 mEq/L (-2.0 to +3.0); Calcium, Ionized (venous) 1.13 mmol/L (1.16-1.32); Chloride (VBG) 103 mmol/L (98-106); Hematocrit 32.4 % (42.0-52.0); Hematocrit-VBG 32 % (42.0-52.0); Hemoglobin 10.3 g/dL (14.0-18.0); Mean Corpuscular HGB CONC 31.8 g/dL (32.0-36.0); Mean Corpuscular Hemoglobin 27.6 pg (27.0-31.0); Mean Corpuscular Volume 86.9 fL (78.0-98.0); Mean Platelet Volume 9.3 fL (7.4-10.4); Platelet Count 144 10x3/uL (130-400); Potassium (VBG) 3.64 mmol/L (3.70-5.30); Red Blood Cell (RBC) Count 3.73 mill/uL (4.70-6.10); Sodium 140 mmol/L (133-146); pH (venous) 7.393 (7.32-7.43)
[2024-09-15 14:21] LABS: ALT (SGPT) 14 U/L (8-55); AST (SGOT) 18 U/L (5-34); Albumin 3.5 g/dL (3.4-4.8); Alkaline Phosphatase 78 U/L (40-110); Anion Gap 13 mmol/L (10-20); BUN (Urea Nitrogen) 18 mg/dL (8.4-25.7); Bilirubin, Total 0.4 mg/dL (0.2-1.2); Calc. Creatinine Clearance 0 mL/min (70-130); Calcium 8.7 mg/dL (7.8-10.44); Carbon Dioxide 21 mmol/L (23-31); Chloride 107 mmol/L (98-107); Estimated GFR 82; Globulin 3.5 g/dL (2.4-3.5); Glucose 133 mg/dL (83-110); Potassium 3.6 mmol/L (3.5-5.1); Sodium 137 mmol/L (136-145)
[2024-09-15] MEDS ORDERED: Ketorolac Tromethamine 30 MG (1 mL) VIAL ONE (14:48)
[2024-09-15] MEDS ORDERED: Sodium Chloride 0.9% 100 ML ONE (14:51)
[2024-09-15] MEDS ORDERED: Cefepime 2 GM VIAL ONE (14:51)
[2024-09-15 15:40] LABS: Bilirubin Negative (Negative); Blood, Urine Trace (Negative); CAUTI Indications for Culture Alt mental st,lethar; Clarity Turbid (Clear); Glucose, Urine (Dipstick) Normal (Negative); Ketone, Urine Trace mg/dL (Negative); Leukocyte 500 Leu/uL (Negative); Nitrite Negative (Negative); Protein, Urine (Dipstick) 30 mg/dL (Neg-Trace); RBC/HPF 0-3 HPF (0-3); Squamous Epithelial 0-3 HPF (0-3); Urobilinogen Normal mg/dL (Less than 2); WBC/HPF Greater than 50 HPF (0-3); pH, Urine 5.5 (5.0-9.0)
[2024-09-15 15:41] LABS: Bacteria/HPF 1+ HPF (None Seen)
[2024-09-15 15:42] LABS: Urine Culture Reflex Yes Yes
[2024-09-15] MEDS ORDERED: Dextrose 5% in Water 1,000 ML IV PRN (17:19)
[2024-09-15] MEDS ORDERED: Ondansetron PF 4 MG/2 ML Vial IVP PRN (17:19)
[2024-09-15] MEDS ORDERED: Dextrose 50% Abboject 50 ML SYRINGE SLOW IVP PRN (17:19)
[2024-09-15] MEDS ORDERED: Ondansetron ODT 4 MG TAB PO PRN (17:19)
[2024-09-15] MEDS ORDERED: Glucagon 1 MG/ML KIT IM PRN (17:19)
[2024-09-15] MEDS ORDERED: Insulin Lispro 100 UNIT/ML 10 ML VIAL SC PRN (17:19)
[2024-09-15] MEDS ORDERED: Albuterol 200 PUFF (6.7GM INHALER) INH PRN (17:19)
[2024-09-15] MEDS ORDERED: Pharmacy to Dose REMDESIVIR IVPB PRN (17:21)
[2024-09-15 18:17] LABS: Acetaminophen Less than 10 mcg/mL (Less than 10); Alcohol Less than 10.0 mg/dL (Less than 10); Salicylate Less than 8.0 mg/dL (Less than 8.0)
[2024-09-15 18:24] LABS: Amphetamine Not Detected (NotDetected); Barbiturates Screen Not Detected (NotDetected); Benzodiazepine Screen Not Detected (NotDetected); Cocaine Metabolite Screen Not Detected (NotDetected); Methadone Not Detected (NotDetected); Methamphetamine Not Detected (NotDetected); Opiate Screen Not Detected (NotDetected); Oxycodone Screen Not Detected (NotDetected); Phencyclidine (PCP) Not Detected (NotDetected); THC/Cannabinoid Screen Not Detected (NotDetected); Tricyclic Screen Not Detected (NotDetected)
[2024-09-15] MEDS ORDERED: Atropine Sulfate 1 mg/1 ml Vial IVP PRN (19:18)
[2024-09-15 22:13] LABS: Magnesium 1.4 mg/dL (1.6-2.6)
[2024-09-16] MEDS: REMDESIVIR 200 MG in Sodium Chloride 0.9% 250 ML 210 ML IV SCH (00:17)
[2024-09-16] MEDS ORDERED: FLU (Fluad Triv) TS24-25 (65UP)/MF59C/PF 45 MCG/0.5 ML Syringe IM ONE (01:45)
[2024-09-16] MEDS: Magnesium Sulfate In Water 4 GM in Premix 1 BAG IVPB SCH (02:03)
[2024-09-16] MEDS: cefTRIAXone\\ROCEPHIN 1 GM in Sodium Chloride 0.9% 100 ML IVPB SCH (03:24)
[2024-09-16] MEDS: Vancomycin (BATCH) 1.25 GM in Premix 1 BAG IVPB SCH (03:38)
[2024-09-16 03:57] LABS: #Basophils Less than 0.03 10x3/uL (0.0-0.2); #Eosinophils Less than 0.03 10x3/uL (0.0-0.7); %Basophils 0.2 % (0.0-1.0); %Eosinophils 0.1 % (0.0-10.0); %Lymphocytes 11.9 % (21.0-51.0); %Monocytes 7.9 % (0.0-10.0); %Neutrophils 79.7 % (42.0-75.0); Hematocrit 29.6 % (42.0-52.0); Hemoglobin 9.2 g/dL (14.0-18.0); Mean Corpuscular HGB CONC 31.1 g/dL (32.0-36.0); Mean Corpuscular Hemoglobin 27.3 pg (27.0-31.0); Mean Corpuscular Volume 87.8 fL (78.0-98.0); Mean Platelet Volume 9.8 fL (7.4-10.4); Platelet Count 127 10x3/uL (130-400); Red Blood Cell (RBC) Count 3.37 mill/uL (4.70-6.10)
[2024-09-16 04:15] LABS: Anion Gap 11 mmol/L (10-20); BUN (Urea Nitrogen) 21 mg/dL (8.4-25.7); Calc. Creatinine Clearance 55 mL/min (70-130); Calcium 8.1 mg/dL (7.8-10.44); Carbon Dioxide 20 mmol/L (23-31); Chloride 109 mmol/L (98-107); Estimated GFR 84; Glucose 152 mg/dL (83-110); Potassium 3.1 mmol/L (3.5-5.1); Sodium 137 mmol/L (136-145)
[2024-09-16 04:17] LABS: ALT (SGPT) 13 U/L (8-55); AST (SGOT) 20 U/L (5-34); Magnesium 2.8 mg/dL (1.6-2.6)
[2024-09-16 05:51] VITALS: BMI 18.1
[2024-09-16] MEDS: Ascorbic Acid 500 mg Chewable Tablet PO SCH (09:19)
[2024-09-16] MEDS: Cholecalciferol (Vitamin D3) 400 UNITS TAB PO SCH (09:19)
[2024-09-16] MEDS: Zinc Sulfate 220 MG CAP PO SCH (09:19)
[2024-09-16] MEDS: Potassium Chloride 20 MEQ TAB PO SCH (09:19)
[2024-09-16] MEDS: metFORMIN 500 MG TAB PO SCH (16:17)
[2024-09-16] MEDS: Lisinopril 2.5 MG TAB PO SCH (16:17)
[2024-09-16] MEDS ORDERED: REMDESIVIR 100 MG in Sodium Chloride 0.9% 250 ML 230 ML IV SCH (21:00)
[2024-09-16] MEDS: Atorvastatin Calcium 40 MG TAB PO SCH (21:15)
[2024-09-17 04:22] LABS: #Basophils Less than 0.03 10x3/uL (0.0-0.2); %Eosinophils 1.8 % (0.0-10.0); %Lymphocytes 24.1 % (21.0-51.0); %Monocytes 7.6 % (0.0-10.0); Hematocrit 30.7 % (42.0-52.0); Hemoglobin 9.7 g/dL (14.0-18.0); Mean Corpuscular HGB CONC 31.6 g/dL (32.0-36.0); Mean Corpuscular Hemoglobin 27.4 pg (27.0-31.0); Mean Corpuscular Volume 86.7 fL (78.0-98.0); Mean Platelet Volume 9.8 fL (7.4-10.4); Platelet Count 156 10x3/uL (130-400); RBC Distribution Width 13.7 % (11.5-14.5); Red Blood Cell (RBC) Count 3.54 mill/uL (4.70-6.10)
[2024-09-17 04:42] LABS: Anion Gap 9 mmol/L (10-20); BUN (Urea Nitrogen) 16 mg/dL (8.4-25.7); Calc. Creatinine Clearance 59 mL/min (70-130); Calcium 8.3 mg/dL (7.8-10.44); Carbon Dioxide 21 mmol/L (23-31); Chloride 111 mmol/L (98-107); Estimated GFR 87; Glucose 85 mg/dL (83-110); Potassium 3.1 mmol/L (3.5-5.1); Sodium 138 mmol/L (136-145)
[2024-09-17 04:45] LABS: ALT (SGPT) 18 U/L (8-55); AST (SGOT) 25 U/L (5-34)
[2024-09-17] MEDS: Clopidogrel Bisulfate 75 MG TAB PO SCH (09:54)
[2024-09-17] MEDS: Aspirin 81 mg Enteric Coated Tablet PO SCH (09:54)
[2024-09-17] MEDS: Pantoprazole DR 40 MG TAB PO SCH (09:54)
[2024-09-17] MEDS: Potassium Chloride 20 MEQ TAB PO SCH (11:13)
[2024-09-18 04:21] LABS: #Basophils Less than 0.03 10x3/uL (0.0-0.2); %Basophils 0.1 % (0.0-1.0); %Lymphocytes 33.4 % (21.0-51.0); %Monocytes 7.8 % (0.0-10.0); %Neutrophils 56.6 % (42.0-75.0); Hematocrit 31.8 % (42.0-52.0); Hemoglobin 10.2 g/dL (14.0-18.0); Mean Corpuscular HGB CONC 32.1 g/dL (32.0-36.0); Mean Corpuscular Hemoglobin 27.2 pg (27.0-31.0); Mean Corpuscular Volume 84.8 fL (78.0-98.0); Platelet Count 174 10x3/uL (130-400); RBC Distribution Width 13.7 % (11.5-14.5); Red Blood Cell (RBC) Count 3.75 mill/uL (4.70-6.10)
[2024-09-18 05:14] LABS: Anion Gap 11 mmol/L (10-20); BUN (Urea Nitrogen) 13 mg/dL (8.4-25.7); Calc. Creatinine Clearance 57 mL/min (70-130); Calcium 8.5 mg/dL (7.8-10.44); Carbon Dioxide 21 mmol/L (23-31); Chloride 110 mmol/L (98-107); Estimated GFR 87; Glucose 95 mg/dL (83-110); Potassium 4.3 mmol/L (3.5-5.1); Sodium 138 mmol/L (136-145)
[2024-09-18] MEDS: Acetaminophen 325 MG TAB PO PRN (22:33)
[2024-09-18] MEDS: Benzonatate 100 MG CAP PO PRN (22:34)
[2024-09-20] MEDS: Insulin Lispro 100 UNIT/ML 10 ML VIAL SC PRN (13:44)
[2024-09-21 12:22] VITALS: BP 132/68; TEMP 97.7
== END 2024-09-21 14:00 | DRG 177 ==
LOC: ERS 13:14 → ERHOLD 17:59 → PCU 22:17 → OBSVTOIN 09-16 08:54
PROVIDERS: ADMIT Internal Medicine; ATTEND Internal Medicine
PROC: XW033E5 Introduction of Remdesivir Anti-infective into Peripheral Vein, Percutaneous Approach, New Technology Group 5 (ICD-10-PCS; principal; 2024-09-15)
DX: U07.1 COVID-19 (principal); G93.41 Metabolic encephalopathy; N39.0 Urinary tract infection, site not specified; R00.1 Bradycardia, unspecified; E78.5 Hyperlipidemia, unspecified; I25.10 Atherosclerotic heart disease of native coronary artery without angina pectoris; E11.9 Type 2 diabetes mellitus without complications; Z79.899 Other long term (current) drug therapy; Z79.82 Long term (current) use of aspirin; R53.81 Other malaise; E87.6 Hypokalemia; Z79.84 Long term (current) use of oral hypoglycemic drugs; Z88.2 Allergy status to sulfonamides; Z88.8 Allergy status to other drugs, medicaments and biological substances
CPT/HCPCS: 36415; 36416; 70450; 71045; 72125; 80048; 80053; 80306; 80307; 81001; 82550; 82805; 83605; 83735; 84443; 84450; 84460; 85025; 87040; 87077; 87086; 87186; 87428; 93005; 93010; 93306; 94760; 96374; 96375; G0378; J0248; J0692; J0696; J1815; J1885; J3370; J7050